=== PATIENT | male | born 1975 | race Caucasian/White ===

== ENCOUNTER 2023-06-02 23:48 | Emergency (ER) | payer SELFPAY ==
[~2023-06-02] VITALS: Ht 182.9 cm; Wt 87.0 kg
[2023-06-02 23:51] VITALS: BP 150/86; PULSE 110; RESP 26; TEMP 97.5; O2SAT 100
[2023-06-03 00:19] LABS: BASOPHILS % 0.3 % (0.0-2.0); EOSINOPHILS % 0.3 % (0.0-5.0); HEMATOCRIT. 49.6 % (42.0-52.0); LYMPHOCYTES % 17.5 % (20.0-50.0); MEAN CORPUSCULAR HEMOGLOBIN 30.9 pg (28.0-32.0); MEAN CORPUSCULAR HGB CONC 34.2 g/dL (31.0-37.0); MEAN CORPUSCULAR VOLUME 90.4 fL (80.0-94.0); MEAN PLATELET VOLUME 8.5 fl (7.4-10.4); MONOCYTES % 6.8 % (2.0-8.0); NEUTROPHILS % 75.1 % (40.0-76.0); PLATELET 331 x1000/uL (130-400); RED BLOOD CELL COUNT 5.49 mill/uL (4.7-6.1); RED CELL DISTRIBUTION WIDTH 13.4 % (11.6-14.6); WHITE BLOOD COUNT 16.7 x1000/uL (4.5-11.0)
[2023-06-03 00:39] LABS: ACETAMINOPHEN < 2 ug/mL (10-30); ALANINE AMINOTRANSFERASE 13 IU/L (10-49); ALBUMIN 4.8 g/dL (3.2-4.8); ASPARTATE AMINOTRANSFERASE 15 IU/L (<34); BILIRUBIN TOTAL 0.6 mg/dL (0.1-1.0); CALCIUM 9.8 mg/dL (8.7-10.4); CARBON DIOXIDE 18 mEq/L (21-32); CHLORIDE 99 mEq/L (98-107); CREATININE 1.6 mg/dL (0.6-1.3); GLUCOSE 84 mg/dL (70-105); POTASSIUM 3.1 mEq/L (3.5-5.1); PROTEIN TOTAL 8.3 g/dL (6.0-8.3); SODIUM 136 mEq/L (136-145); UREA NITROGEN BLOOD 17 mg/dL (9-23)
[2023-06-03] MEDS ORDERED: LORAZEPAM 2MG/ML SYR IV NR (00:45)
[2023-06-03] MEDS ORDERED: SODIUM CHLORIDE 0.9% 1,000 ML IV ONE (00:45)
[2023-06-03 01:10] LABS: ETHANOL BLOOD < 10 mg/dL (<10)
[2023-06-03] MEDS ORDERED: POTASSIUM CHLORIDE 20MEQ/PACKET PO NR (02:00)
== END 2023-06-03 10:40 | disposition home or self-care (01) ==
LOC: ER 06-03 00:01
DX: F22 Delusional disorders (principal); R45.851 Suicidal ideations; F14.90 Cocaine use, unspecified, uncomplicated; F17.200 Nicotine dependence, unspecified, uncomplicated; F12.90 Cannabis use, unspecified, uncomplicated
CPT/HCPCS: 71045; 93005; 80053; 80307; 80329; 80320; 85025; 36415; 96374; 99285; J2060; G0480